=== PATIENT | female | born 1940 | race Caucasian/White ===

== ENCOUNTER → 2017-04-30 | Outpatient (CLI) | payer MEDICARE, OTHER ==
[~2017-04-30] MED LIST: ALEN70TA43 PO; ASPI-1471 PO; AZIT-1 PO; CYCL1DRO6 OP; FLU IM; FLU45SYR17 IM; FLU45SYR25 IM ONLY; FLU60SYR30 IM ONLY; HYDR-2966 PO; LATODPT OD; LISI-362 PO; LISI5TAB25 PO; MECL25TA9 PO; OMEG-145 PO; PNEU0.5D3 IM; ROSU20TA13 PO; SIMV-54 PO; TIMO10DR28 OP
== END ==
LOC: LAB 16:44
PROVIDERS: ATTEND Emergency Medicine
DX: Z02.9 Encounter for administrative examinations, unspecified (principal)

== ENCOUNTER 2017-06-03 15:44 | Outpatient (RCR) | payer MEDICARE, OTHER ==
[2017-06-03 10:12] LABS: PLATELET COUNT, AUTOMATED 196 K/uL (150-450)
[2017-06-04] MEDS ORDERED: GADOBENATE 529MG/1ML 15ML VIAL IVP ONE (10:40)
--- NOTE | 2017-06-04 12:56 | RADIOLOGY IMAGING REPORT ---
FACILITY: [facility] - [place] PATIENT NAME: Ronna Hidalgo : 1940 MR: [id number] V: [id number] EXAM DATE: ORDERING PHYSICIAN: BELLO ESPINOSA TECHNOLOGIST: Location: [facility] Patient: Ronna Hidalgo : 1940 Visit/Account:[id number] Date of Sevice: 06/04/2017 Examination: MR brain without and with contrast History: Dizziness Comparison: December 26, 2014 Technique: Multiplane MR imaging was performed through the brain without and with contrast. 15 cc IV gadobenate was administered. Findings: Diffusion: None Ventricles: Normal Midline shift: None Extraxial fluid: None Midline craniocervical structures: Normal Parenchyma: A few unchanged scattered white matter high signal foci. Enhancement: No pathologic enhancement Vascular flow voids: Normal Orbits and paranasal sinuses: Cataract postsurgical change. Impression: 1. No acute finding. 2. Mild unchanged chronic small vessel ischemic change. 3. Otherwise normal brain MR without and with contrast. Report Dictated By: Yimi Garcia MD at 06/04/2017 12:48 PM Report E-Signed By: Yimi Garcia MD at 06/04/2017 12:53 PM WSN:[id number]
== END 2017-06-04 18:00 | disposition home or self-care (01) ==
LOC: MRI 15:44 → EDSTATUS 15:44 → MRI 06-04 18:00
PROVIDERS: ATTEND Emergency Medicine
DX: R42 Dizziness and giddiness (principal)
CPT/HCPCS: 36415; 70553; 85025; A9577; 82040; 82247; 82310; 82374; 82435; 82565; 82947; 84075; 84132; 84155; 84295; 84450; 84460; 84520

== ENCOUNTER → 2017-06-12 | Outpatient (CLI) | payer MEDICARE, OTHER ==
--- NOTE | 2017-06-14 13:51 | RT HOLTER TEST ---
FACILITY: [facility] - [place] PATIENT NAME: DAVID FUENTES : [id number] MR: [id number] V: [id number] EXAM DATE: ORDERING PHYSICIAN: BELLO ESPINOSA TECHNOLOGIST: PAPITO Hook-up date: 2017-06-12 10:12:00 Duration: 23:24:00 Test Indications: DIZZINESS Medications: N/A 55173 QRS complexes 3 Ventricular ectopics which represent <1 % of total QRS comp. 13 Supraventricular ectopics which represent <1 % of total QRS comp. * Paced QRS complexes which represent % of total QRS comp. VENTRICULAR ECTOPY 3 Isolated 0 Bigeminal Cycles 0 Couplets 0 Runs 0 Beats in Runs * Beats LONGEST at * BPM at :: -- * Beats FASTEST at * BPM at :: -- SUPRAVENTRICULAR ECTOPY 11 Isolated 1 Couplets 0 Runs 0 Beats in Runs * Beats LONGEST at * BPM at :: -- * Beats FASTEST at * BPM at :: -- HEART RATES 47 MIN at 04:42:26 2017-06-13 65 AVG 108 MAX at 10:15:40 2017-06-12 LONGEST RR 1.272 secs at 11:42:32 2017-06-12 S-T LEVELS Channel 1 -12.800 mm MIN at 10:12:00 2017-06-12 -12.800 mm MAX at 10:12:00 2017-06-12 Channel 2 -12.800 mm MIN at 10:12:00 2017-06-12 -12.800 mm MAX at 10:12:00 2017-06-12 Channel 3 -12.800 mm MIN at 10:12:00 2017-06-12 -12.800 mm MAX at 10:12:00 2017-06-12 Very rare ventricular ectopy. No couplets, triplets, or runs. Very rare supraventricular ectopy with one couplet recorded. No runs. No pauses. Confirmed by VANGIE GROSS ([id number]) on 06/14/2017 1:51:13 PM Referred By: Overread By: VANGIE GROSS
== END ==
LOC: RESP 01:28
PROVIDERS: ATTEND Emergency Medicine
DX: R42 Dizziness and giddiness (principal)
CPT/HCPCS: 93225; 93226

== ENCOUNTER 2017-11-04 09:45 | Outpatient (RCR) | payer MEDICARE, OTHER ==
--- NOTE | 2017-10-18 14:08 | PT INITIAL EVALUATION ---
MEDICAL DIAGNOSIS: TREATMENT DIAGNOSIS: R vestibular hypofunction, altered gait and balance DATE OF ONSET: 04/08/14 SUBJECTIVE: Ronna Hidalgo presents to PT for dizziness with fast turns, walking, standing. She will be moving in 4-6 weeks and would like to work on reducing dizziness if she can. REHAB PROBLEM LIST: Decreased Balance, Decreased Vestibular Function, Altered Gait PREVIOUS MEDICAL HISTORY: L rotator cuff syndrome, sleep apnea OCCUPATION: Retired, independent in all ADL's. OBJECTIVE: Posture: Heels 6" apart, increased thoracic kyphosis and forward head posture. Special Tests: Positive head thrust, VOR x1/x2, gait with head rotation, static stand eyes closed on firm or foam for dizziness (no nystagmus). Negative Hallpike. Mobility: Independent. Gait: Gait with head motion, eyes closed create dizziness and R weaving and tandem gait with loss of balance in 3-4 steps. Functional gait assessment a 17 % impairment. Balance: Single leg stand R 3 seconds, L 8 seconds, tandem stand 10 seconds L and R. Static stand with eyes shut with increased postural sway on firm ( dizziness) and strong postural sway on foam (dizziness). Canales balance ASSESSMENT: Ronna Hidalgo presents with R vestibular hypofunction affecting balance, gait. She did well with vestibular habituation exercises and is started on a vestibular HEP. Short Term Goals 4 weeks: Ronna ambulates in low light setting or uneven ground , turns quickly R without dizziness. Patient's Goals Get rid of dizziness with standing and walking. PLAN: Patient to be seen for Stretching, Neuromuscular Re-ed, Gait Trg/Balance Trg, Home Exercise Program for 2x/Week for 4 Weeks Thank you for this referral. If you have any questions, comments, or concerns about this report or plan, please contact me at . [facility]
[~2017-11-04 09:45] MED LIST changes: -LATODPT OD; +LATODPT OU; +MULT-19 PO; -ROSU20TA13 PO; +ROSU20TA5 PO; +TIMO5DRO OU; +[UNRECOGNIZED DRUG - CODE] PO
[2017-11-14] MEDS ORDERED: SIMV-54 PO (09:28)
--- NOTE | 2017-11-25 17:39 | PT PLAN OF CARE ---
Physician: Dr. Rose Mary Nails Patient is being seen: 2x/week Therapist: Whitney Chaney, PT Medical Diagnosis: Treatment Diagnosis: R vestibular hypofunction, altered gait and balance Date of Onset: 04/08/14 Date of Initial Evaluation: 10/18/17 Date patient was last seen: 11/04/17 Number of treatments: 4 Number of cancellations/No shows: 0 INTERVENTIONS: Vestibular habituation exercises for Neuromuscular Re-ed, Gait Trg/Balance Trg, Home Exercise Program GOALS: 4 weeks: Ronna ambulates in low light setting or uneven ground, turns quickly R without dizziness. (progressed) PATIENT'S GOAL: Get rid of dizziness with standing and walking (not met). Patient Compliance: Excellent Prognosis: Excellent Reasons for discontinuing therapy: S: Ronna stopped attending PT after October and had related they were going to move to [place]. She reported less out-of-sync dizziness overall. I left a voice mail asking how she's doing. O: Gait/balance: Ronna ambulated with normal line of progression with dynamic vestibular habituation exercises, had a HEP for eye-ear retraining. She had advanced to hip/ankle strategy exercises. Canales Balance Assessment wasn't done as she stopped attending PT. Mobility: Independent. A/P: Ronna Hidalgo did well with four sessions of vestibular training. As she appears to have moved, I'll close her PT case here. Thank you. LORENZO
== END 2017-11-04 18:00 | disposition home or self-care (01) ==
LOC: PT 09:45
PROVIDERS: ATTEND Emergency Medicine
DX: H81.91 Unspecified disorder of vestibular function, right ear (principal); R26.89 Other abnormalities of gait and mobility
CPT/HCPCS: 97162